=== PATIENT | male | born 1945 | race Two or more races ===

== ENCOUNTER 2016-08-11 07:43 | Emergency (ER) | payer OTHER ==
[~2016-08-11] VITALS: Ht 172.7 cm; Wt 86.2 kg
[2016-08-11 07:48] VITALS: BP 70/128
[2016-08-11] MEDS ORDERED: cefTRIAXone SOD 1,000 MG VL IM ONE (08:45)
[2016-08-11] MEDS ORDERED: KETOROLAC TROMETH 60MG/2ML VIAL IM ONE (08:45)
[2016-08-11] MEDS ORDERED: LIDOCAINE 1% HCL (LOCAL ANESTH.) INJ 20ML MDV IJ ONE (09:00)
[2016-08-11] MEDS ORDERED: BACITRACIN TOP OINT 1 UD PKG TOP ONE (09:00)
== END 2016-08-11 11:14 | disposition home or self-care (01) ==
LOC: ER 07:43
DX: S61.215A Laceration without foreign body of left ring finger without damage to nail, initial encounter (principal); S61.217A Laceration without foreign body of left little finger without damage to nail, initial encounter; E78.5 Hyperlipidemia, unspecified; M19.90 Unspecified osteoarthritis, unspecified site; W26.0XXA Contact with knife, initial encounter; Y93.89 Activity, other specified; Y99.8 Other external cause status; Y92.89 Other specified places as the place of occurrence of the external cause
CPT/HCPCS: 12002; 73130; 96372; 99284; J0696; J1885; J2001

== ENCOUNTER 2024-11-09 22:33 | Emergency (ER) | payer OTHER ==
[~2024-11-09] VITALS: Ht 170.2 cm; Wt 81.7 kg
[2024-11-09 22:34] VITALS: BP 155/76; PULSE 94; RESP 72; TEMP 98.9
[2024-11-09 23:59] LABS: Hematocrit 45.6 % (41.0-53.0); Hemoglobin 15.5 g/dL (13.5-17.5); Mean Corpuscular Hemoglobin 30.3 pg (28.0-32.0); Mean Corpuscular Volume 89.3 fL (80.0-100.0); Nucleated Red Blood Cells % 0.1 %
[2024-11-10 00:09] LABS: Alanine Aminotransferase 29 U/L (7-40); Albumin 4.6 g/dL (3.2-4.8); Alkaline Phosphatase 65 U/L (46-116); Anion Gap 7 (5-15); BUN/Creatinine Ratio 15.1 (10.0-20.0); Blood Urea Nitrogen 13 mg/dL (9-23); Calcium 9.2 mg/dL (8.7-10.4); Carbon Dioxide 26 mmol/L (20-31); Chloride 107 mmol/L (98-107); Potassium 4.3 mmol/L (3.5-5.1); Sodium 140 mmol/L (136-145); Total Protein 7.2 g/dL (5.7-8.2)
[2024-11-10 00:10] LABS: Bilirubin, Total 0.5 mg/dL (0.2-1.0)
[2024-11-10 00:16] LABS: Glucose 115 mg/dL (74-106)
[2024-11-10 00:37] LABS: Lipase 63 U/L (12-53)
--- NOTE | 2024-11-10 00:41 | DVH ---
Exam: CT CT AB PEL WO CON-NO ORAL OR IV History: abd pain n/v Comparison Study: None Technique: Multidetector spiral CT of the abdomen was performed from lung bases to pubic symphysis. I maging was performed without IV contrast. Axial, coronal and sagittal multiplanar reformats were obta ined from the axial data set by the technologist. Radiation Dose : 1. Abdomen/Pelvis: CTDIvol 8.51 mGy, DLP 507.62 mGy*cm. Findings: Evaluation of solid organs is limited due to lack of intravenous contrast use. Lower Chest: No acute findings. Liver: Unremarkable. Gallbladder and Biliary Tree: Unremarkable Pancreas: Mild atrophy. Spleen: Unremarkable. Adrenal Glands: Unremarkable. Kidneys/Ureters: Mild left hydroureteronephrosis and asymmetric perinephric stranding, without ureter al stone. Nonobstructing 4 mm stone in the left collecting system. Right simple appearing urinary cys t without stone or obstruction. Bladder: Layering intraluminal stone at midline. No wall thickening. Pelvic Organs: Unremarkable Bowel: Normal caliber without wall thickening. No evidence of appendicitis. Uncomplicated colonic div erticulosis. Vasculature: Mild atherosclerosis. Lymphadenopathy: No obvious adenopathy. Peritoneum: No ascites, free air, or fluid collection. Abdominal Wall: No significant hernia. Musculoskeletal: No acute findings. Degenerative change of the spine and pelvis. IMPRESSION: 1. Findings compatible with a recently passed stone from the left ureter into the urinary bladder, la yering dependently. Mild residual left hydroureteronephrosis. 2. Additional nonobstructing left nephrolith. Radiation optimization: All CT scans at this facility use at least one of these dose optimization lucy hniques: automated exposure control mA and/or kV adjustment per patient size (includes targeted exam s where dose is matched to clinical indication) or iterative reconstruction.
--- NOTE | 2024-11-10 00:42 | ED.PDOC ---
GI ASSESSMENT HPI Comments HPI: Poor Historian. 79-year-old male presents to the ED with his daughter for evaluation of left- sided abdominal pain that happened 2 hours prior to arrival. Patient was straining and had some normal color stool. However he noticed when he wipes there was some blood on the tissue. Patient had some nausea at that time. Prior to my evaluation all symptoms have resolved and he is no longer having any abdominal pain or nausea. Patient is nontoxic in appearance. Past Medical History: Prostate cancer status post radiation, prediabetes Past Surgical History: Carpal tunnel REVIEW OF SYSTEMS: CONSTITUTIONAL: Denies acute: fever, diaphoresis, chills, generalized weakness. HEAD: Denies acute: headache, photophobia Eyes: Denies acute: Double vision, vision loss, eye pain, eye discharge. EARS: Denies acute: tinnitus, hearing loss, ear discharge, ear pain, THROAT: Denies acute: sore throat, swelling, difficulty swallowing , pain with swallo wing, change in voice. NECK: Denies acute: neck pain, neck swelling, stiff neck. HEART: Denies acute : chest pain, palpitations, LUNGS: Denies acute: SOB, wheezing, cough, hemoptysis ABDOMEN: Denies acute: abdominal pain, Nausea, Vomiting, diarrhea, melena , hematemesis, hematochezia SKIN: Denies acute: rash, redness, lesions, itchiness. EXTREMITIES: Denies acute: calf pain, numbness, tingling, weakness, denies pain in extremity. Denies acute: Low back pain. Neuro: Denies acute: focal neurological deficit, motor or sensory focal neurological deficit, tremors, seizure like activity, confusion, dizziness, change in mental status, loss of bowel or bladder function, cauda equina like symptoms. : Denies acute: dysuria, hematuria, flank pain, increase in urinary frequency. PSYCH: Denies acute: hallucination, suicidal ideation, homicidal ideation. PHYSICAL EXAM: General: ----no----acute distress, awake and alert. Head: normocephalic, atraumatic. Neck: supple, trachea is midline, no swelling. Throat: Normal phonation. Eyes:, no erythema, no purulent discharge, no proptosis, no icterus. Heart: regular rate, regular rhythm, no significant murmur appreciated. Lungs: no apparent respiratory distress, Able to speak in full sentences. No wheezing, no rhonchi, no crackles. No stridors Clear to auscultation bilaterally. Abdomen: non tender to palpation, non distended, soft, no guarding, no rebound, + bowel sounds. Neuro: Awake, Alert, oriented to name, self, situation, follows commands GCS=15. Speech is normal. Skin: no petechia, no purpura, no cyanosis, non-pale, not jaundice. Lower extremities: --no - Pitting edema no deformity, no focal swelling, no calf TTP. Makes eye contact. moves all four extremities. Face: no apparent facial droop. Ambulating in the ED independently. ED COURSE: DISCLAIMER: This medical document was created using an electronic medical record system with voice recognition software and computerized dictation system. Although this document has been carefully reviewed, there might still be some phonetic and ty pographical errors. Occasional wrong-word or "sound-alike" substitutions may have occurred due to the inherent limitations of voice recognition software. These areas are purely typographical due to imperfections of the software programs and do not reflect any compromise in the patient's medical care. Please read the chart carefully and recognize, using context, where these substitutions have occurred. Chief Complaint: Abdominal Pain Time Seen by MD: 23:35 Primary Care Provider: COLLIN Lomeli Notes: Allergies Allergies: Coded Allergies: NO KNOWN ALLERGIES (Unverified , 11/09/24) Information Source: Patient, Relative Mode of Arrival: Ambulatory Past Medical History PAST MEDICAL HISTORY: Arthritis, High Lipids, Denies Surgical History: Denies all surgeries Family History Family History: Unknown Social History Smoker: Non-Smoker Alcohol: Denies ETOH Use Drugs: Denies Drug Use X-Ray, Labs, Meds, VS Vital Signs Date Time Temp Pulse Resp B/P (MAP) Pulse Ox O2 Delivery O2 Flow Rate FiO2 11/09/24 22:34 98.9 94 72 155/76 16 98.9 Lab Test 11/10/24 00:39 11/10/24 00:37 11/09/24 23:44 Range/Units Urine Color Light-yellow Yellow Urine Clarity Clear Clear Urine pH 5.0 5.0-9.0 Urine Specific [place] 1.016 1.001-1.035 Urine Protein Negative Negative Urine Ketones Negative Negative Urine Blood 2+ H Negative /uL Urine Nitrite Negative Negative Urine Bilirubin Negative Negative Urine Urobilinogen Normal Negative mg/dL Urine Leukocyte Esterase Negative Negative /uL Urine RBC 5 0 - 3 /hpf Urine Microscopic WBC < 1 0-3 /HPF Urine Squamous Epithelial Cells None seen <5 /hpf Urine Uric Acid Crystals Few None Seen /hpf Urine Bacteria None seen None Seen /hpf Urine Mucus Few None Seen Urine Glucose Normal Normal mg/dL Troponin I High Sensitivity < 3 L < 3 L </=54 ng/L White Blood Count 10.9 H 4.4-10.8 10^3/uL Red Blood Count 5.10 4.5-5.90 10^6/uL Hemoglobin 15.5 13.5-17.5 g/dL Hematocrit 45.6 41.0-53.0 % Mean Corpuscular Volume 89.3 80.0-100.0 fL Mean Corpuscular Hemoglobin 30.3 28.0-32.0 pg Mean Corpuscular Hemoglobin Concent 33.9 32.0-36.0 g/dL Red Cell Distribution Width 13.6 11.8-14.3 % Platelet Count 269 140-450 10^3/uL Mean Platelet Volume 8.2 6.9-10.8 fL Neutrophils (%) (Auto) 83.0 H 37.0-80.0 % Lymphocytes (%) (Auto) 10.4 10.0-50.0 % Monocytes (%) (Auto) 5.1 0.0-12.0 % Eosinophils (%) (Auto) 1.0 0.0-7.0 % Basophils (%) (Auto) 0.5 0.0-2.0 % Neutrophils # (Auto) 9.0 H 1.6-8.6 10 ^3/uL Lymphocytes # (Auto) 1.1 0.4-5.4 10 ^3/uL Monocytes # (Auto) 0.6 0-1.3 10 ^3/uL Eosinophils # (Auto) 0.1 0-0.8 10 ^3/uL Basophils # (Auto) 0.1 0-0.2 10 ^3/uL Nucleated Red Blood Cells 0.1 % Sodium Level 140 136-145 mmol/L Potassium Level 4.3 3.5-5.1 mmol/L Chloride Level 107 98-107 mmol/L Carbon Dioxide Level 26 20-31 mmol/L Anion Gap 7 5-15 Blood Urea Nitrogen 13 9-23 mg/dL Creatinine 0.86 0.700-1.30 mg/dL Glomerular Filtration Rate Calc 89 >90 mL/min BUN/Creatinine Ratio 15.1 10.0-20.0 Serum Glucose 115 H 74-106 mg/dL Lactic Acid Level 1.6 0.4-2.0 mmol/L Calcium Level 9.2 8.7-10.4 mg/dL Total Bilirubin 0.5 0.2-1.0 mg/dL Aspartate Amino Transferase (AST) 15 13-40 U/L Alanine Aminotransferase (ALT) 29 7-40 U/L Alkaline Phosphatase 65 46-116 U/L Total Protein 7.2 5.7-8.2 g/dL Albumin 4.6 3.2-4.8 g/dL Lipase 63 H 12-53 U/L SEPSIS Sepsis Screen Date sepsis recognized/suspect: Nov 09, 2024 Time Sepsis recognized/suspect: 2233 Recent Procedure: No On Antibiotic Therapy: No Respiratory Rate >20: No Heart Rate >90: No Temp<36 C (96.8 F) or >38.3 C: No SBP <90 or MAP <65 mmHG: No New Acute Mental Status Change: No Is the patient on CPAP, BIPAP,: No Physician Orders Streetsweeper Operator (11/09/24 ) Electrocardigram (11/09/24 23:35) Ct Ab Pel Wo Con-No Oral Or Iv (11/09/24 23:35) Sodium Chloride 0.9% (11/10/24 01:30) Vital Signs Date Time Temp Pulse Resp B/P (MAP) Pulse Ox O2 Delivery O2 Flow Rate FiO2 11/09/24 22:34 98.9 94 72 155/76 16 98.9 Laboratory Tests Test 11/09/24 23:44 Lactic Acid Level 1.6 mmol/L (0.4-2.0) White Blood Count 10.9 10^3/uL (4.4-10.8) H Departure 1 Departure Time of Disposition: 01:22 Impression: Primary Impression: Hydroureteronephrosis Additional Impression: Kidney stone Disposition: HOME / SELF CARE / HOMELESS Condition: Stable Additional Instructions: Additional instructions: Please read all instructions provided in this packet carefully. You MUST follow-up with your primary care/family doctor in 1 to 2 days. If you are unable to see your primary care/family doctor, please return to our emergency room for re-assessment and re-evaluation in 1 to 2 days. Return to the emergency room here in our facility or to the nearest ER [facility] if your symptoms change or worsen. CONSULTATIONS: you MUST Follow-up for consultation as soon as possible with: -urology and gastroenterology in 1-2 days. Please call for appointment. You MUST call the consultants office yourself to make an appointment. You may need to arrange that through your insurance and/or your primary/family doctor. If you are unable to see the design sales consultant in 1 to 2 days, you must return to our emergency room (or any other ER of your choice) for re-assessment and re- evaluation. Adequate fluid hydration. Although you have been discharged from the Emergency Department, this does not mean that you have a "clean bill of health". No definitive diagnosis for your symptoms has been made today. It is possible that you are in the process of developing a serious illness. This is why you must return to the ED without fail if any new or worsening symptoms develop. Below is a copy of your radiological report for follow up: [place] [address] Ph: [phone] DIAGNOSTIC IMAGING Diagnostic Imaging Report : [id number] Signed PATIENT: LUIS F RAMIREZ ACCT: [id number] UNIT: [id number] : 1945 LOC: ER ROOM / BED: / AGE / SEX: 79 / M ADM STATUS: REG ER SERVICE [facility] ORDERING PHYSICIAN: DONELL GREGORY DO PROCEDURE(s): ABPL - CT AB PEL WO CON-NO ORAL OR IV REASON: abd pain n/v ORDER NUMBER(s): [id number], ACCESSION NUMBER(s): [id number] Exam: CT CT AB PEL WO CON-NO ORAL OR IV History: abd pain n/v Comparison Study: None Technique: Multidetector spiral CT of the abdomen was performed from lung bases to pubic symphysis. Imaging was performed without IV contrast. Axial, coronal and sagittal multiplanar reformats were obtained from the axial data set by the technologist. Radiation Dose : 1. Abdomen/Pelvis: CTDIvol 8.51 mGy, DLP 507.62 mGy*cm. Findings: Evaluation of solid organs is limited due to lack of intravenous contrast use. Lower Chest: No acute findings. Liver: Unremarkable. Gallbladder and Biliary Tree: Unremarkable Pancreas: Mild atrophy. Spleen: Unremarkable. Adrenal Glands: Unremarkable. Kidneys/Ureters: Mild left hydroureteronephrosis and asymmetric perinephric stranding, without ureteral stone. Nonobstructing 4 mm stone in the left collecting system. Right simple appearing urinary cyst without stone or obstruction. Bladder: Layering intraluminal stone at midline. No wall thickening. Pelvic Organs: Unremarkable Bowel: Normal caliber without wall thickening. No evidence of appendicitis. Uncomplicated colonic diverticulosis. Vasculature: Mild atherosclerosis. Lymphadenopathy: No obvious adenopathy. Peritoneum: No ascites, free air, or fluid collection. Abdominal Wall: No significant hernia. Musculoskeletal: No acute findings. Degenerative change of the spine and pelvis. IMPRESSION: 1. Findings compatible with a recently passed stone from the left ureter into the urinary bladder, layering dependently. Mild residual left hydrour eteronephrosis. 2. Additional nonobstructing left nephrolith. Radiation optimization: All CT scans at this facility use at least one of these dose optimization techniques: automated exposure control mA and/or kV adjustment per patient size (includes targeted exams where dose is matched to clinical indication) or iterative reconstruction. Discharged With: Self, Relative Critical Care Note Critical Care Time?: No I personally scribed for DONELL GREGORY DO ([email or web address]) on 11/10/24 at 01:19. Electronically submitted by Rosalia Valle ([email or web address]). DONELL GREGORY DO Nov 10, 2024 00:42
[2024-11-10 01:37] LABS: Urine Protein, UAD Negative (Negative)
[2024-11-10] MEDS: SODIUM CHLORIDE 0.9% 1,000 ML IV ONE (03:10)
[2024-11-10] MEDS: TAMSULOSIN HYDROCHLORIDE 0.4 MG CAP PO ONE (03:10)
[2024-11-10 03:15] VITALS: O2SAT 98
[2024-11-11] MEDS ORDERED: TRAM25TA PO (22:11)
[2024-11-11] MEDS ORDERED: ZOFR4T PO (22:13)
[2024-11-11] MEDS ORDERED: TRAM-626 PO (22:15)
[2024-11-12] MEDS ORDERED: ZOFR4T PO (15:38)
== END 2024-11-10 03:17 | disposition home or self-care (01) ==
LOC: ER 22:33
DX: N13.2 Hydronephrosis with renal and ureteral calculous obstruction (principal); E78.5 Hyperlipidemia, unspecified; M19.90 Unspecified osteoarthritis, unspecified site
CPT/HCPCS: 36415; 74176; 80053; 81001; 83605; 83690; 84484; 85025

== ENCOUNTER 2024-11-11 15:59 | Emergency (ER) | payer OTHER ==
[~2024-11-11] VITALS: Ht 170.2 cm; Wt 81.5 kg
--- NOTE | 2024-11-11 16:22 | ED.PDOC ---
General HPI Comments 79 year old male presents to the ED with a chief complaint of LT flank pain onset today. Patient was seen in this ED 11/10/24, imaging showed he had recently passes kidney stone, patient states pain improved prior to discharge. This morning, he began experiencing LT flank pain radiating to low back. Last kidney stone was 3 months ago, prior to that episode last kidney stone was about 10 years ago. PMHx HLD, kidney stones. Denies fever chills, dysuria, hematuria, diarrhea, dizziness. Patient confirms nausea and vomiting. No other symptoms or modifying factors present at this time. Patient was hypertensive at arrival. Chief Complaint: Abdominal Pain Time Seen by MD: 16:15 Primary Care Provider: COLLIN Reviewed notes: Nurses Notes, Medications, Allergies Allergies: Coded Allergies: NO KNOWN ALLERGIES (Unverified , 11/09/24) Information Source: Patient, Relative (Child) Mode of Arrival: Ambulatory Severity: Moderate Timing: Hours Duration: Since onset Prehospital treatment: None Onset: Spontaneous Symptoms: Other History of: Kidney stone Location: (L)Flank Penile discharge: None Modifying factors: None associated signs and symptoms: Nausea, Vomiting, Flank Pain, Back Pain Past Medical History PAST MEDICAL HISTORY: Arthritis, High Lipids, Kidney Stones Past Medical History (Other): Recent kidney stone event that resulted in hydronephrosis Surgical History: Denies all surgeries Family History Family History: Unknown Social History Smoker: Non-Smoker Alcohol: Denies ETOH Use Drugs: Denies Drug Use Lives In: Home Constitutional: denies: chills, diaphoresis, fatigue, fever, malaise, sweats, weakness, others EENTM: denies: blurred vision, double vision, ear bleeding, ear discharge, ear drainage, ear pain, ear ringing, eye pain, eye redness, hearing loss, mouth pain, mouth swelling, nasal discharge, nose bleeding, nose congestion, nose pa in, photophobia, tearing, throat pain, throat swelling, voice changes, others Respiratory: denies: cough, hemoptysis, orthopnea, SOB at rest, shortness of breath, SOB with excertion, stridor, wheezing, others Cardiovascular: denies: chest pain, dizzy spells, diaphoresis, Dyspnea on exertion, edema, irregular heart beat, left arm pain, lightheadedness, palpitations, PND, syncope, others Gastrointestinal: reports: nausea, vomiting; denies: abdomen distended, abdominal pain, blood streaked bowels, constipated, diarrhea, dysphagia, difficulty swallowing, hematemesis, melena, poor appetite, poor fluid intake, rectal bleeding, rectal pain, others Genitourinary: reports: flank pain (LT); denies: burning, dysuria, frequency, hematuria, incontinence, penile discharge, penile sore, pain, testicle pain, testicle swelling, urgency, others Neurological: denies: dizziness, fainting, headache, left sided numbness, left sided weakness, numbness, paresthesia, pre-existing deficit, right sided numbness, right sided weakness, seizure, speech problems, tingling, tremors, weakness, others Musculoskeletal: reports: back pain; denies: gout, joint pain, joint swelling, muscle pain, muscle stiffness, neck pain, others Integumetry: denies: bruises, change in color, change in hair/nails, dryness, laceration, lesions, lumps, rash, wounds, others Allergic/Immunocompromised: denies: Difficulty Healing, Frequent Infections, Hives, Itching, others Hematologic/Lymphatic: denies: anemia, blood clots, easy bleeding, easy bruising, swollen glands, others Endocrine: denies: excessive hunger, excessive sweating, excessive thirst, excessive urination, flushing, intolerance to cold, intolerance to heat, unexplained weight gain, unexplained weight loss, others Psychiatric: denies: anxiety, bipolar disorder, depression, hopeless, panic disorder, schizophrenia, sleepless, suicidal, others All Other Systems: Reviewed and Negative Physical Exam General Appearance: Moderate Distress (Patient was in moderate distress due to left flank pain concerns.), Normal HEENT: Normal ENT Inspection, Pharynx Normal, TMs Normal Neck: Full Range of Motion, Non-Tender, Normal, Normal Inspection Respiratory: Chest Non-Tender, Lungs Clear, No Accessory Muscle Use, No Respiratory Distress, Normal Breath Sounds Cardiovascular: No Edema, No JVD, No Murmur, No Gallop, Normal Peripheral Pulses, Regular Rate/Rhythm Breast Exam: Deferred Gastrointestinal: No Pulsatile Mass, Normal Bowel Sounds, Other (Left-sided flank pain extending into the abdomen. Diffuse bilateral epigastric tenderness throughout. No pulsatile masses.) Genitalia: Deferred Pelvic: Deferred Rectal: Deferred Extremities: No calf tenderness, Normal capillary refill, Normal inspection, Normal range of motion, Non-tender, No pedal edema Musculoskeletal : Apperance: Normal Neurologic: Alert, No Motor Deficits, Normal Affect, Normal Mood, No Sensory Deficits Cerebellar Function: NOT DONE Reflexes: NOT DONE Skin: Dry, Normal Color, Warm Lymphatic: No Adenopathy Was a procedure done? Was a procedure done?: No Differential Diagnosis Kidney stone (Female): Other (Kidney stone, occlusive kidney stone, pyelonephritis, UTI, pancreatitis, gastroenteritis, small-bowel obstruction) X-Ray, Labs, Meds, VS Vital Signs Date Time Temp Pulse Resp B/P (MAP) Pulse Ox O2 Delivery O2 Flow Rate FiO2 11/11/24 16:18 71 11/11/24 16:03 97.9 90 20 153/118 97 97.9 Lab Test 11/11/24 14:38 Range/Units White Blood Count 9.2 4.4-10.8 10^3/uL Red Blood Count 4.97 4.5-5.90 10^6/uL Hemoglobin 15.3 13.5-17.5 g/dL Hematocrit 44.5 41.0-53.0 % Mean Corpuscular Volume 89.5 80.0-100.0 fL Mean Corpuscular Hemoglobin 30.8 28.0-32.0 pg Mean Corpuscular Hemoglobin Concent 34.4 32.0-36.0 g/dL Red Cell Distribution Width 13.8 11.8-14.3 % Platelet Count 264 140-450 10^3/uL Mean Platelet Volume 8.6 6.9-10.8 fL Neutrophils (%) (Auto) 73.5 37.0-80.0 % Lymphocytes (%) (Auto) 19.1 10.0-50.0 % Monocytes (%) (Auto) 5.8 0.0-12.0 % Eosinophils (%) (Auto) 0.9 0.0-7.0 % Basophils (%) (Auto) 0.7 0.0-2.0 % Neutrophils # (Auto) 6.8 1.6-8.6 10 ^3/uL Lymphocytes # (Auto) 1.8 0.4-5.4 10 ^3/uL Monocytes # (Auto) 0.5 0-1.3 10 ^3/uL Eosinophils # (Auto) 0.1 0-0.8 10 ^3/uL Basophils # (Auto) 0.1 0-0.2 10 ^3/uL Nucleated Red Blood Cells 0.0 % Sodium Level 142 136-145 mmol/L Potassium Level 4.5 3.5-5.1 mmol/L Chloride Level 105 98-107 mmol/L Carbon Dioxide Level 28 20-31 mmol/L Anion Gap 9 5-15 Blood Urea Nitrogen 16 9-23 mg/dL Creatinine 1.01 0.700-1.30 mg/dL Glomerular Filtration Rate Calc 77 >90 mL/min BUN/Creatinine Ratio 15.8 10.0-20.0 Serum Glucose 125 H 74-106 mg/dL Calcium Level 9.7 8.7-10.4 mg/dL Lipase 65 H 12-53 U/L X-Ray, Labs, Meds, VS Comment All studies performed in the ED were evaluated by me personally. Urine was pending at time of this note. Serum studies confirmed an elevated lipase indicative of a pancreatitis event. CT of the abdomen and pelvis revealed a left-sided occlusive kidney stone resulting in hydronephrosis. Patient will be admitted for pain management, evaluation of his pancreatitis as well as assistance with management of his recurrent kidney stones. Time of 1ST Reevaluation: 17:19 Reevaluation 1ST: Improved Consultation: PCP Patient Education/Counseling: Diagnosis, Treatment, Prognosis Family Education/Counseling: Diagnosis, Treatment, No Family Present SEPSIS Sepsis Screen Date sepsis recognized/suspect: Nov 11, 2024 Time Sepsis recognized/suspect: 1605 Recent Procedure: No On Antibiotic Therapy: No Respiratory Rate >20: No Heart Rate >90: No Temp<36 C (96.8 F) or >38.3 C: No SBP <90 or MAP <65 mmHG: No New Acute Mental Status Change: No Is the patient on CPAP, BIPAP,: No Physician Orders Electrocardigram (11/11/24 16:17) Urinalysis (11/11/24 16:19) Ct Ab Pel Wo Con-No Oral Or Iv (11/11/24 16:19) Hydromorphone Injection (Dilaudid Inject (11/11/24 17:15) Ondansetron Hcl (Zofran) (11/11/24 17:15) Heplock Iv (11/11/24 ) Vital Signs Date Time Temp Pulse Resp B/P (MAP) Pulse Ox O2 Delivery O2 Flow Rate FiO2 9/19/25 16:18 71 11/11/24 16:03 97.9 90 20 153/118 97 97.9 Laboratory Tests Test 11/11/24 14:38 White Blood Count 9.2 10^3/uL (4.4-10.8) Departure 1 Departure Time of Disposition: 17:19 Impression: Primary Impression: Hydronephrosis concurrent with and due to calculi of kidney and ureter Additional Impression: Pancreatitis Disposition: ADMITTED INPATIENT Condition: Fair Discharged With: Self, Relative Critical Care Note Critical Care Time?: No Stability Stability form required: No Heart Score Heart Score: Heart Score Response (Comments) Value History N/A 0 EKG N/A 0 Age N/A 0 Risk Factors N/A 0 Troponin N/A 0 Total 0 I personally scribed for BUFFY GAMBOA PAC ([email or web address]) on 11/11/24 at 16:22. Electronically submitted by Sarahi Glover ([email or web address]). BUFFY GAMBOA PAC Nov 11, 2024 16:22
[2024-11-11] MEDS ORDERED: ONDANSETRON ODT 4 MG TAB PO ONE (16:30)
[2024-11-11] MEDS ORDERED: HYDROcodone-ACET 10/325MG TAB PO ONE (16:30)
[2024-11-11 16:57] LABS: Hematocrit 44.5 % (41.0-53.0); Hemoglobin 15.3 g/dL (13.5-17.5); Mean Corpuscular Hemoglobin 30.8 pg (28.0-32.0); Mean Corpuscular Volume 89.5 fL (80.0-100.0); Nucleated Red Blood Cells % 0.0 %
[2024-11-11 17:01] LABS: Anion Gap 9 (5-15); Carbon Dioxide 28 mmol/L (20-31); Chloride 105 mmol/L (98-107); Potassium 4.5 mmol/L (3.5-5.1); Sodium 142 mmol/L (136-145)
--- NOTE | 2024-11-11 17:01 | DVH ---
Indication: Left-sided flank pain Technique: CT axial images of the abdomen and pelvis are obtained without contrast. Coronal and sagit robert reformats were obtained. Radiation Dose Information: CTDI volume is 17.06 mGy. Dose-length product is 850.79 mGy*cm Comparison: CT CT AB PEL WO CON-NO ORAL OR IV on DOS: 11/09/24 FINDINGS: There is limited interpretation of the abdomen and pelvis without administration of intravenous contr ast. Lung bases demonstrate no pleural effusion. The adrenal glands, spleen, pancreas unremarkable in shape. Liver unremarkable in shape. No CT evide nce for cholelithiasis. 1.4 cm right renal cyst. No right hydronephrosis, nephrolithiasis. The left kidney demonstrates [id number] left hydroureteronephrosis secondary to a 4 mm calculus at the left ureterovesicular junction. Left perinephric edema, stranding. Left renal peripelvic cy sts. 2 mm nonobstructing left renal calculus. Stomach moderately distended. Small bowel loops demonstrate Fecal like contents Colonic diverticula. Moderate volume stool in the colon. No secondary signs for appendicitis. Abdominal aortic atherosclerotic disease. Bladder partially distended. No free pelvic fluid. Fat con taining bilateral inguinal hernias. [id number] bilateral sacroiliac degenerative joint disease. A 1.8 cm fat containing paraumbilical hernia. Moderate thoracolumbar degenerative disc disease and fa cet hypertrophic changes. IMPRESSION: Limited evaluation without contrast. [id number] left hydroureteronephrosis secondary to a 4 mm calculus at the left ureterovesicular junction. Fecal like contents within the small bowel which can be seen with ileus, hypomotility, bowel obstruct ion. Other findings as described.
[2024-11-11 17:02] LABS: Calcium 9.7 mg/dL (8.7-10.4)
[2024-11-11 17:07] LABS: BUN/Creatinine Ratio 15.8 (10.0-20.0); Blood Urea Nitrogen 16 mg/dL (9-23); Glucose 125 mg/dL (74-106)
[2024-11-11 17:08] LABS: Lipase 65 U/L (12-53)
[2024-11-11] MEDS: ONDANSETRON HCL 4 MG/2 ML VIAL IV ONE (18:01)
[2024-11-11] MEDS: HYDROmorphone HCL 2 MG/ML VL/or syr IV ONE (18:02)
--- NOTE | 2024-11-11 18:17 | ECG ---
[facility] Test Date: 2024-11-11 Test Time: 16:13:53 Pat Name: LUIS F RAMIREZ Department: ED Room: Gender: M Pool Manager: aditya : 1945 Requested By: BUFFY GAMBOA Order Number: [id number] Reading MD: Bg Paniagua Measurements Intervals [place] Rate: 71 P: 64 ME: 154 QRS: 85 QRSD: 86 T: 54 QT: 365 QTc: 397 Interpretive Statements Sinus rhythm Borderline right axis deviation Electronically Signed On 11-14-2024 18:48:42 PDT by Bg Paniagua Please click the below link to view image of tracing.
[2024-11-11 21:08] LABS: Urine Protein, UAD TRACE (Negative); Urine WBC Clumps PRESENT /hpf (None Seen)
[2024-11-11 21:10] VITALS: BP 166/96; TEMP 97.6
[2024-11-11] MEDS: TAMSULOSIN HYDROCHLORIDE 0.4 MG CAP PO ONE (21:21)
[2024-11-11 21:23] VITALS: PULSE 98; RESP 18; O2SAT 95
[2024-11-11] MEDS ORDERED: TRAM25TA PO (22:11)
[2024-11-11] MEDS ORDERED: ZOFR4T PO (22:13)
[2024-11-11] MEDS ORDERED: TRAM-626 PO (22:15)
--- NOTE | 2024-11-11 22:20 | DVHINCON2 ---
PEPE SAXENA [employer]AL DRESSER 11/11/24 2220: Date of service: Nov 11, 2024 Referring Physician Adelina Leblanc PA-c Reason for Consultation Medical management History of Present Illness 79-year-old male presents with complaints of left-sided flank pain. Patient was recently seen on November 09, 2024 at this facility with similar complaints and discharged home as findings are consistent with passing of a kidney stone. During today's emergency department evaluation CBC is unremarkable. BMP is unremarkable. Lipase is mildly elevated at [address] evidence of acute pancreatitis. UA is negative for infection. CT of the abdomen and pelvis without contrast reads mild to moderate left hydroureteronephrosis secondary to 4 mm calculus at the left ureterovesicular junction . At this time patient denies fevers, chills, dizziness, shortness of breath, chest pain, leg swelling. Social History Denies EtOH, illicit drug use, smoking Allergies: Coded Allergies: NO KNOWN ALLERGIES (Unverified , 11/09/24) Home Meds Active Scripts Tramadol HCl (Tramadol HCl) 50 Mg Tab, 50 MG PO Q6HP PRN, #12 TAB Prov:BUFFY LEBLANC PAC 11/11/24 Ondansetron Odt 4MG Tab (ZOFRAN PO) 4 Mg Tb, 4 MG PO Q8HPRN PRN for 4 Days, #12 TAB ODT TAB-DISSOLVE IN MOUTH, THEN SWALLOW Prov:PEPE SAXENA MET[employer]ESSER 11/11/24 Review of Systems 10 systems reviewed and negative except as per HPI Vital Signs Vital Signs Date Time Temp Pulse Resp B/P (MAP) Pulse Ox O2 Delivery O2 Flow Rate FiO2 11/11/24 21:23 98 18 95 Room Air 11/11/24 21:10 97.6 166/96 (119) 97.6 Physical Exam GENERAL: Patient appearing stated age, in mild acute distress. Uncomfortable due to pain. HEENT: Pupils equal and reactive to light and accommodation. Extraocular muscl es intact. Mucous membranes moist. Conjunctivae pink. Anicteric sclerae. LUNGS: Bilateral air entry. No wheezes, rhonchi or rales. HEART: Regular rate and rhythm. Normal S1 and S2. ABDOMEN: BS normoactive, soft, nontender, and nondistended. Left CVA tenderness on palpation EXTREMITIES: No clubbing, cyanosis, edema. No calf tenderness. Pedal pulses 2+. NEUROLOGICAL: The patient is alert and oriented times 3. CN II-XII intact. No focal deficits on gross sensory or motor examination. Labs/Diagnostic Data Labs Test 11/11/24 14:38 11/11/24 00:00 Range/Units White Blood Count 9.2 4.4-10.8 10^3/uL Red Blood Count 4.97 4.5-5.90 10^6/uL Hemoglobin 15.3 13.5-17.5 g/dL Hematocrit 44.5 41.0-53.0 % Mean Corpuscular Volume 89.5 80.0-100.0 fL Mean Corpuscular Hemoglobin 30.8 28.0-32.0 pg Mean Corpuscular Hemoglobin Concent 34.4 32.0-36.0 g/dL Red Cell Distribution Width 13.8 11.8-14.3 % Platelet Count 264 140-450 10^3/uL Mean Platelet Volume 8.6 6.9-10.8 fL Neutrophils (%) (Auto) 73.5 37.0-80.0 % Lymphocytes (%) (Auto) 19.1 10.0-50.0 % Monocytes (%) (Auto) 5.8 0.0-12.0 % Eosinophils (%) (Auto) 0.9 0.0-7.0 % Basophils (%) (Auto) 0.7 0.0-2.0 % Neutrophils # (Auto) 6.8 1.6-8.6 10 ^3/uL Lymphocytes # (Auto) 1.8 0.4-5.4 10 ^3/uL Monocytes # (Auto) 0.5 0-1.3 10 ^3/uL Eosinophils # (Auto) 0.1 0-0.8 10 ^3/uL Basophils # (Auto) 0.1 0-0.2 10 ^3/uL Nucleated Red Blood Cells 0.0 % Sodium Level 142 136-145 mmol/L Potassium Level 4.5 3.5-5.1 mmol/L Chloride Level 105 98-107 mmol/L Carbon Dioxide Level 28 20-31 mmol/L Anion Gap 9 5-15 Blood Urea Nitrogen 16 9-23 mg/dL Creatinine 1.01 0.700-1.30 mg/dL Glomerular Filtration Rate Calc 77 >90 mL/min BUN/Creatinine Ratio 15.8 10.0-20.0 Serum Glucose 125 H 74-106 mg/dL Calcium Level 9.7 8.7-10.4 mg/dL Lipase 65 H 12-53 U/L Urine Color Light-orange Yellow Urine Clarity Ex.turbid Clear Urine pH 5.0 5.0-9.0 Urine Specific [place] 1.025 1.001-1.035 Urine Protein Trace H Negative Urine Ketones Negative Negative Urine Blood 3+ H Negative /uL Urine Nitrite Negative Negative Urine Bilirubin Negative Negative Urine Urobilinogen Normal Negative mg/dL Urine Leukocyte Esterase Negative Negative /uL Urine RBC 1988 0 - 3 /hpf Urine WBC Clumps Present None Seen /hpf Urine Microscopic WBC 53 H 0-3 /HPF Urine Squamous Epithelial Cells None seen <5 /hpf Urine Bacteria None seen None Seen /hpf Urine Mucus Few None Seen Urine Glucose Normal Normal mg/dL Assessment Mild to moderate left hydroureteronephrosis 4 mm kidney stone Renal colic Patient was seen and evaluated ER lobby. The pace of charge was reviewed in its entirety, including lab work, imaging, imaging from previous emergency department visit and physical assessment. During the emergency department evaluation W 9.2, H&H 15.3/44.5, PLT 254, NA 142, K4.5, BUN 16, 1.01, GFR 77, lipase [address] evidence of acute pancreatitis. CT of the abdomen pelvis without contrast reads mild to moderate left hydronephrosis secondary to 4 mm calculus at the left ureteralvesicular junction. On evaluation, patient is hemodynamically stable: a febrile temperature 97.6, BP 166/96, HR 98, RR 18 BPM, oxygen saturation 95% on room air. Patient is non-toxic appearing and able to ambulate independently. Patient is K Plan/Recommendation Given that patient BUN is 16 and creatinine 1.01, well within normal range with a GFR 77. Patient will be discharged home with close follow up. O case monitor has been consulted to establish home safety evaluation for the following day. Will repeat BMP and renal ultrasound on Thursday. To evaluate for passage of stone. I appreciate the ER provider assisting me and sending a prescription for tramadol to the patients pharmacy. Patient was also discharged with oral Zofran. The patient was provided with strict ER precautions, including but not limited to fevers, chills, dizziness, shortness of breath, syncope, chest pain, nausea, vomiting. If any of these occurred, please return to the nearest emergency department for further evaluation and treatment. Patient case and details reviewed in their entirety with supervising physician, Dr Howard who is in agreement with current plan of care. Plan discussed with: Patient IWONA FLORES MD 11/12/24 1440: Allergies: Coded Allergies: NO KNOWN ALLERGIES (Unverified , 11/09/24) Home Meds Active Scripts Tramadol HCl (Tramadol HCl) 50 Mg Tab, 50 MG PO Q6HP PRN, #12 TAB Prov:BUFFY LEBLANC PAC 11/11/24 Ondansetron Odt 4MG Tab (ZOFRAN PO) 4 Mg Tb, 4 MG PO Q8HPRN PRN for 4 Days, #12 TAB ODT TAB-DISSOLVE IN MOUTH, THEN SWALLOW Prov:PEPE SAXENA NP 11/11/24 Additional Comments Additional Comments Additional Comments Patient's chart reviewed and discussed with the nurse practitioner. Patient is seen and evaluated and discharged by METAL DRESSER from the ER. I agree with his evaluation, recommendation, assessment and care plan as outlined. PEPE SAXENA NP Nov 11, 2024 22:20 IWONA FLORES MD Nov 12, 2024 14:40
[2024-11-12] MEDS ORDERED: ZOFR4T PO (15:38)
== END 2024-11-11 22:54 | disposition home or self-care (01) ==
LOC: ER 15:59
DX: N13.2 Hydronephrosis with renal and ureteral calculous obstruction (principal); K85.90 Acute pancreatitis without necrosis or infection, unspecified; M19.90 Unspecified osteoarthritis, unspecified site; I10 Essential (primary) hypertension; E78.5 Hyperlipidemia, unspecified; Z79.899 Other long term (current) drug therapy
CPT/HCPCS: 36415; 74176; 80048; 81001; 83690; 85025; 93005; 96374; 96375; 99285; J1171; J2405